=== PATIENT | male | born 1970 | race Caucasian/White ===

== ENCOUNTER 2016-08-18 14:43 | Emergency (ER) | payer MEDICAID ==
[~2016-08-18] VITALS: Wt 78.0 kg
[~2016-08-18 14:43] MED LIST: DENIES MEDS
[2016-08-18] MEDS ORDERED: ONDANSETRON 4 MG INJ IV STA (14:53)
[2016-08-18] MEDS ORDERED: morphine 4 MG/ML VIAL IV STA (14:53)
--- NOTE | 2016-08-18 14:55 | ERD ---
ER Documentation Chief Complaint Date/Time DATE: 08/18/16 TIME: 14:54 Chief Complaint HPI Patient is a 46-year-old male who presents with sudden onset, severe, sharp pain to the bilateral lower quadrants described as something exploding inside him. The patient states he has had this pain intermittently over the last 1 month. He reports that it is worse with coughing or sneezing. He denies any exacerbation after eating or exercising. Reports subjective fever yesterday. Denies vomiting. Reports constipation. Last bowel movement was today. Denies dysuria or hematuria. ROS All systems reviewed and are negative except as per history of present illness. Medications Home Meds Active Scripts Tramadol HCl (Tramadol HCl) 50 Mg Tablet, 50 MG PO Q4 Y for PAIN, #20 TAB Prov:BLANKA PRATER MD 08/18/16 Discontinued Reported Medications [Denies Meds] No Conflict Check 07/05/10 Allergies Allergies: Coded Allergies: No Known Drug Allergy (Verified Allergy, Mild, 08/18/16) PMhx/Soc Past medical history: None Past surgical history: Appendectomy Social history: Smokes cigarettes, denies alcohol or illicit drugs. History of Surgery: Yes (appy) Anesthesia Reaction: No Hx Neurological Disorder: No Hx Respiratory Disorders: No Hx Cardiac Disorders: No Hx Psychiatric Problems: No Hx Miscellaneous Medical Probl: No Hx Alcohol Use: No Hx Substance Use: No Hx Tobacco Use: No FmHx Family History: No coronary disease, No diabetes Physical Exam Vitals Vital Signs Date Time Temp Pulse Resp B/P Pulse Ox O2 Delivery O2 Flow Rate FiO2 08/18/16 18:16 75 14 119/59 97 Room Air 08/18/16 16:01 71 20 131/75 96 Nasal Cannula 2.0 08/18/16 14:55 98.3 79 18 153/71 98 Physical Exam Const: Alert, in severe distress Head: Atraumatic Eyes: Normal Conjunctiva, no pallor, no icterus ENT: Normal External Ears, Nose and Mouth. Mucous membranes moist Neck: Full range of motion..~ No meningismus. Resp: Clear to auscultation bilaterally, no wheezes, no rales Cardio: Regular rate and rhythm, no murmurs Abd: Soft, obese, tender in bilateral lower quadrants and right upper quadrant. Exam is inconsistent. No rebound. Skin: No petechiae or rashes Back: No midline or flank tenderness Ext: No cyanosis, or edema Neur: Awake and alert, cranial nerves II through XII intact bilaterally, moves and feels 4 extremities appropriately. Psych: Normal Mood and Affect Result Diagram: 08/18/16 1435 08/18/16 1435 Results 24 hrs Laboratory Tests Test 08/18/16 14:35 08/18/16 17:46 White Blood Count 14.210^3/ul Red Blood Count 5.0410^6/ul Hemoglobin 15.5g/dl Hematocrit 46.1% Mean Corpuscular Volume 91.5fl Mean Corpuscular Hemoglobin 30.8pg Mean Corpuscular Hemoglobin Concent 33.6g/dl Red Cell Distribution Width 12.7% Platelet Count 07405^3/UL Mean Platelet Volume 9.7fl Neutrophils % 56.6% Lymphocytes % 29.5% Monocytes % 8.2% Eosinophils % 4.7% Basophils % 0.6% Nucleated Red Blood Cells % 0.0/100WBC Neutrophils # 8.010^3/ul Lymphocytes # 4.210^3/ul Monocytes # 1.210^3/ul Eosinophils # 0.710^3/ul Basophils # 0.110^3/ul Nucleated Red Blood Cells # 0.010^3/ul Prothrombin Time 12.0Sec Prothrombin Time Ratio 0.9 INR International Normalized Ratio 0.89 Activated Partial Thromboplast Time 31.6Sec Sodium Level 138mmol/L Potassium Level 3.9mmol/L Chloride Level 102mmol/L Carbon Dioxide Level 25mmol/L Anion Gap 15 Blood Urea Nitrogen 14mg/dl Creatinine 0.84mg/dl Glucose Level 194mg/dl Lactic Acid Level 2.6mmol/L Calcium Level 8.7mg/dl Total Bilirubin 0.1mg/dl Direct Bilirubin 0.00mg/dl Indirect Bilirubin 0.1mg/dl Aspartate Amino Transf (AST/SGOT) 31IU/L Alanine Aminotransferase (ALT/SGPT) 42IU/L Alkaline Phosphatase 86IU/L Troponin I < 0.012ng/ml Total Protein 7.2g/dl Albumin 3.5g/dl Globulin 3.70g/dl Albumin/Globulin Ratio 0.94 Lipase 53U/L Urine Color LT. YELLOW Urine Clarity CLEAR Urine pH 5.0 Urine Specific [place] <=1.005 Urine Ketones NEGATIVE Urine Nitrite NEGATIVE Urine Bilirubin NEGATIVE Urine Urobilinogen 0.2 E.U./dL Urine Leukocyte Esterase NEGATIVE Urine Hemoglobin NEGATIVE Urine Glucose NEGATIVE% Urine Total Protein NEGATIVE Current Medications Medications (Trade) Dose Ordered Sig/Ciro Route PRN Reason Start Time Stop Time Status Last Admin Dose Admin Morphine Sulfate (morphine) 4 mg ONCE STAT IV 08/18/16 14:53 08/18/16 14:55 DC 08/18/16 15:07 Ondansetron HCl (Zofran Inj) 4 mg ONCE STAT IV 08/18/16 14:53 08/18/16 14:55 DC 08/18/16 15:07 IV Flush 10 ml 10 ml STK-MED ONCE .ROUTE 08/18/16 15:43 08/18/16 15:44 DC 08/18/16 15:54 Sodium Chloride (NS) 100 ml @ ud STK-MED ONCE .ROUTE 08/18/16 15:43 08/18/16 15:44 DC 08/18/16 15:54 Iohexol (Omnipaque 300mg/ ml) 150 ml STK-MED ONCE .ROUTE 08/18/16 15:43 08/18/16 15:44 DC 08/18/16 15:54 Sodium Chloride (NS) 2,420 ml BOLUS OVER 2 HOURS STAT IV* 08/18/16 16:04 08/18/16 16:06 DC 08/18/16 16:26 Procedures/MDM EKG read by me: Time 1530, rate 80 Rhythm: Normal sinus [place]: Normal Intervals: Normal ST-T waves: no ischemic changes Ectopy: No Q-waves: Inferior and lateral Q waves Impression: No evidence of ischemia or arrhythmia, possible prior PA MDM: Patient is a 46-year-old male who presents with acute lower abdominal pain. He has variable tenderness on serial exams, but significant right lower quadrant tenderness on initial exam. CT scan shows fatty liver and cholelithiasis, but no evidence of appendicitis, cholecystitis, diverticulitis, ureterolithiasis, or aortic pathology. Patient has elevated white blood cell count and slightly elevated lactic acid, but is afebrile and otherwise has normal vital signs. Patient was given IV fluids and analgesics and on reassessment patient states that his pain is almost completely resolved. He does have residual mild right lower quadrant tenderness on exam. His description of symptoms is not suggestive of mesenteric ischemia, and there is no pain out of proportion to exam. Given the intermittency and duration of symptoms for 1 month, I do not suspect appendicitis. Given that the patient is now well-appearing and has stable vital signs and minimal symptoms, I believe he can be safely discharged home. I did discuss strict return precautions given his mild abdomen abnormalities on laboratory testing, and I also advised the patient to follow-up with his PMD for referral to gastroenterology given chronicity of symptoms. Departure Diagnosis: Primary Impression: Abdominal pain Abdominal location: right lower quadrant Qualified Code: R10.31 - Right lower quadrant abdominal pain Condition: BLANKA Davis MD August 18, 2016 14:55
[2016-08-18 15:14] LABS: ADD SCAN DIFF NO
[2016-08-18 15:17] LABS: BASOPHIL # 0.1 10^3/ul (0.0-0.1); BASOPHILS % 0.6 % (0.0-2.0); EOSINOPHILS # 0.7 10^3/ul (0.0-0.5); EOSINOPHILS % 4.7 % (0.0-7.0); HEMATOCRIT 46.1 % (42.0-52.0); HEMOGLOBIN 15.5 g/dl (14.0-18.0); LYMPHOCYTES # 4.2 10^3/ul (0.8-2.9); LYMPHOCYTES % 29.5 % (15.0-51.0); MEAN CORPUSCULAR HEMOGLOBIN 30.8 pg (29.0-33.0); MEAN CORPUSCULAR HGB CONC 33.6 g/dl (32.0-37.0); MEAN CORPUSCULAR VOLUME 91.5 fl (82.0-101.0); MEAN PLATELET VOLUME 9.7 fl (7.4-10.4); MONOCYTE # 1.2 10^3/ul (0.3-0.9); MONOCYTES % 8.2 % (0.0-11.0); NEUTROPHILS % 56.6 % (39.0-77.0); PLATELET COUNT 303 10^3/UL (140-415); RED BLOOD COUNT 5.04 10^6/ul (4.70-6.10); RED CELL DISTRIBUTION WIDTH 12.7 % (11.5-14.5); WHITE BLOOD COUNT 14.2 10^3/ul (4.8-10.8)
[2016-08-18 15:34] LABS: INR 0.89; PT RATIO 0.9
[2016-08-18 15:35] LABS: PARTIAL THROMBOPLASTIN TIME 31.6 Sec (25.0-35.0)
[2016-08-18 15:36] LABS: ALBUMIN 3.5 g/dl (3.3-4.9)
[2016-08-18 15:37] LABS: POTASSIUM 3.9 mmol/L (3.5-5.1)
[2016-08-18 15:39] LABS: ALBUMIN/GLOBULIN RATIO 0.94; BILIRUBIN,INDIRECT 0.1 mg/dl (0-1.1); BILIRUBIN,TOTAL 0.1 mg/dl (0.2-1.3); CREATININE 0.84 mg/dl (0.61-1.24); TOTAL PROTEIN 7.2 g/dl (6.1-8.1)
[2016-08-18 15:40] LABS: CALCIUM 8.7 mg/dl (8.4-10.2)
[2016-08-18] MEDS ORDERED: SOD CHLORIDE 0.9% 100 ML ONE (15:43)
[2016-08-18] MEDS ORDERED: IOHEXOL 300MG/ML 150 ML BTL ONE (15:43)
[2016-08-18] MEDS ORDERED: SODIUM CHLORIDE 0.9% 1L BAG IV* STA (16:04)
--- NOTE | 2016-08-18 16:27 | RADRPT ---
PROCEDURE: CT abdomen and pelvis with intravenous contrast. CLINICAL INDICATION: Abdominal Pain TECHNIQUE: Following intravenous contrast, spiral CT of the abdomen pelvis was performed and is re constructed at 2.5 mm contiguous axial intervals from the dome of the diaphragm to the inferior pubi c rami. Computer reformatted coronal and sagittal images are included. CT D I 24 millicurie Dose 1374 millicurie per centimeter COMPARISON: CT abdomen pelvis September 08, 2013 FINDINGS: Lung bases are clear of any infiltrate or mass. There is no effusion. The liver is enlarged measuring 20 cm. There is diffuse fatty infiltration. No mass or ductal dila tation is seen. Gallbladder is decompressed. A tiny gallstone is noted. No splenic, adrenal or pancreatic abnormalities present. Kidneys enhance symmetrically. No hydronephrosis, calculus or solid masses present. Cortical cyst i s seen in the midpole of the left kidney. Ureters are of normal course and caliber with no stone. N o bladder mass or stone is present. Prostate and seminal vesicles are normal. No bowel mass or obstruction is seen. There is no phlegmon, ascites or pneumoperitoneum. No aneurysm is detected. There is no adenopathy. The osseous structures are intact. IMPRESSION: No evidence of urolithiasis, obstructive uropathy, diverticulitis or appendicitis. Cholelithiasis. Enlarged fatty liver. .Maximino Lacey MD, Date Time Electronically viewed and signed by .Maximino Lacey MD, on 08/18/2016 16:27 .A/
--- NOTE | 2016-08-18 17:07 | RADRPT ---
PROCEDURE: XR Chest. CLINICAL INDICATION: Chest pain. Leukocytosis TECHNIQUE: Portable AP upright view of the chest was obtained. COMPARISON: None. FINDINGS: The cardiomediastinal silhouette is mildly enlarged. The lungs are clear. There is no evidence for pleural effusion, pneumothorax or pulmonary vascular congestion. The osseous structures are intact with no evidence for acute abnormality. RPTAT:HJJR IMPRESSION: Mild cardiac silhouette enlargement without evidence for acute intrathoracic pathology. Physician Emilie Date Time Electronically viewed and signed by Physician Emilie on 08/18/2016 17:06 JR/
[2016-08-18 18:05] LABS: ADD UMIC NO; URINE BILIRUBIN (Dip) NEGATIVE (NEGATIVE); URINE BLOOD (Dip) NEGATIVE (NEGATIVE); URINE COLOR LT. YELLOW (YELLOW); URINE GLUCOSE (Dip) NEGATIVE (NEGATIVE); URINE KETONES (Dip) NEGATIVE (NEGATIVE); URINE LEUKOCYTE ESTERASE (Dip) NEGATIVE (NEGATIVE); URINE NITRITE (Dip) NEGATIVE (NEGATIVE); URINE TOTAL PROTEIN (Dip) NEGATIVE (NEGATIVE); URINE UROBILINOGEN (Dip) 0.2 E.U./dL (0.1-1.0)
[2016-08-18] MEDS ORDERED: TRAM50TA2 PO (18:14)
[2016-08-18 18:16] VITALS: BP 119/59; PULSE 75; RESP 14
== END 2016-08-18 18:55 | disposition home or self-care (01) ==
LOC: E/R 14:43
DX: R10.31 Right lower quadrant pain (principal); F17.210 Nicotine dependence, cigarettes, uncomplicated
CPT/HCPCS: 36415; 71010; 74177; 80053; 81003; 83605; 83690; 84484; 85025; 85610; 85730; 87040; 87086; 93005; 96374; 96375; J2270; J2405; J7030; Q9967; Z7502; Z7610

== ENCOUNTER 2016-12-18 21:02 | Emergency (ER) | payer MEDICAID ==
[~2016-12-18] VITALS: Ht 182.9 cm; Wt 124.5 kg
[~2016-12-18 21:02] MED LIST changes: -DENIES MEDS; +TRAM50TA2 PO
[2016-12-18 21:23] VITALS: Ht 182.9 cm; Wt 124.5 kg
[2016-12-19] MEDS ORDERED: ONDANSETRON 4 MG INJ IV STA (01:05)
[2016-12-19] MEDS ORDERED: morphine 4 MG/ML VIAL IV STA (01:05)
--- NOTE | 2016-12-19 01:17 | ERD ---
ER Documentation Chief Complaint Date/Time DATE: 12/19/16 TIME: 01:13 Chief Complaint lower abd pain x1 day HPI 46-year-old male presents here in emergency department for complaints of lower abdominal pain that started yesterday, describes the pain as sharp pain, 9/10 scale, not better or worse with anything. Patient denies any fever or chills. Patient denies any flank pain. Patient denies any hematuria or dysuria. Patient feels like his abdomen is bloated. ROS All systems reviewed and are negative except as per history of present illness. Medications Home Meds Active Scripts Tramadol HCl (Tramadol HCl) 50 Mg Tablet, 50 MG PO Q4 Y for PAIN, #20 TAB Prov:BLANKA PRATER MD 08/18/16 Allergies Allergies: Coded Allergies: No Known Drug Allergy (Verified Allergy, Mild, 08/18/16) PMhx/Soc History of Surgery: Yes (appendectomy) Anesthesia Reaction: No Hx Neurological Disorder: No Hx Respiratory Disorders: No Hx Cardiac Disorders: No Hx Psychiatric Problems: No Hx Miscellaneous Medical Probl: No Hx Alcohol Use: No Hx Substance Use: No Hx Tobacco Use: No Smoking Status: Never smoker FmHx Family History: No coronary disease, No diabetes, No other Physical Exam Vitals Vital Signs Date Time Temp Pulse Resp B/P Pulse Ox O2 Delivery O2 Flow Rate FiO2 12/18/16 21:23 98.3 92 20 126/62 98 Physical Exam GENERAL: The patient is well developed and appropriate for usual state of health, in no apparent distress. CHEST: Clear to auscultation bilaterally. There are no rales, wheezes or rhonchi. HEART: Regular rate and rhythm. No murmurs, clicks, rubs or gallops. No S3 or S4. ABDOMEN: Soft, nontender and nondistended. Good bowel sounds. No rebound or guarding. No gross peritonitis. No gross organomegaly or masses. No Huynh sign or McBurney point tenderness. BACK: No midline or flank tenderness. EXTREMITIES: Equal pulses bilaterally. There is no peripheral clubbing, cyanosis or edema. No focal swelling or erythema. Full range of motion. Grossly neurovascularly intact. NEURO: Alert and oriented. Cranial nerves 2-12 intact. Motor strength in all 4 extremities with 5/5 strength. Sensation grossly intact. Normal speech and gait. SKIN: There is no apparent rash or petechia. The skin is warm and dry. HEMATOLOGIC AND LYMPHATIC: There is no evidence of excessive bruising or lymphedema. No gross cervical, axillary, or inguinal lymphadenopathy. Result Diagram: 12/19/16 0123 12/19/16 0123 Results 24 hrs Laboratory Tests Test 12/19/16 01:23 12/19/16 01:28 White Blood Count 12.710^3/ul Red Blood Count 5.1010^6/ul Hemoglobin 15.8g/dl Hematocrit 45.5% Mean Corpuscular Volume 89.2fl Mean Corpuscular Hemoglobin 31.0pg Mean Corpuscular Hemoglobin Concent 34.7g/dl Red Cell Distribution Width 12.3% Platelet Count 92295^3/UL Mean Platelet Volume 10.2fl Neutrophils % 59.0% Lymphocytes % 26.5% Monocytes % 8.7% Eosinophils % 4.6% Basophils % 0.7% Nucleated Red Blood Cells % 0.0/100WBC Neutrophils # (Manual) 7.510^3/ul Lymphocytes # 3.410^3/ul Monocytes # 1.110^3/ul Eosinophils # 0.610^3/ul Basophils # 0.110^3/ul Nucleated Red Blood Cells # 0.010^3/ul Sodium Level 132mmol/L Potassium Level 4.3mmol/L Chloride Level 100mmol/L Carbon Dioxide Level 27mmol/L Anion Gap 9 Blood Urea Nitrogen 12mg/dl Creatinine 0.86mg/dl Glucose Level 358mg/dl Calcium Level 9.5mg/dl Total Bilirubin 0.4mg/dl Direct Bilirubin 0.00mg/dl Indirect Bilirubin 0.4mg/dl Aspartate Amino Transf (AST/SGOT) 36IU/L Alanine Aminotransferase (ALT/SGPT) 62IU/L Alkaline Phosphatase 118IU/L Total Protein 7.6g/dl Albumin 3.9g/dl Globulin 3.70g/dl Albumin/Globulin Ratio 1.05 Lipase 72U/L Urine Color YELLOW Urine Clarity CLEAR Urine pH 5.0 Urine Specific [place] 1.036 Urine Ketones NEGATIVEmg/dL Urine Nitrite NEGATIVEmg/dL Urine Bilirubin NEGATIVEmg/dL Urine Urobilinogen NEGATIVEmg/dL Urine Leukocyte Esterase NEGATIVELeu/ul Urine Hemoglobin NEGATIVEmg/dL Urine Glucose 3+mg/dL Urine Total Protein NEGATIVEmg/dl Current Medications Medications (Trade) Dose Ordered Sig/Ciro Route PRN Reason Start Time Stop Time Status Last Admin Dose Admin Morphine Sulfate (morphine) 4 mg ONCE STAT IV 12/19/16 01:05 12/19/16 01:06 DC 12/19/16 01:32 Ondansetron HCl 4 mg 4 mg ONCE STAT IV 12/19/16 01:05 12/19/16 01:06 DC 12/19/16 01:32 Sodium Chloride (NS) 100 ml @ ud STK-MED ONCE .ROUTE 12/19/16 02:53 12/19/16 02:54 DC 12/19/16 03:07 Iohexol (Omnipaque 300mg/ ml) 150 ml STK-MED ONCE .ROUTE 12/19/16 02:53 12/19/16 02:54 DC 12/19/16 03:07 Patient was given medication for pain here in emergency department, after treatment, patient verbalized feeling much better. Patient's pain is improved.Patient was given Zofran here in the emergency department. After treatment, patient was able to tolerate po fluids here in the emergency department without any vomiting. There is no signs and symptoms of dehydration. PROCEDURE: CT Abdomen and pelvis with contrast CLINICAL INDICATION: Abdominal pain TECHNIQUE: Spiral CT images through the abdomen and pelvis without administration of oral and during intravenous administration of 100 cc of Omnipaque-300 contrast material. Multiplanar reformatted images were obtained. The total exam CTDI equals 23.6 mGy and the total exam DLP equals 1642.29 mGy- cm. One or more of the following dose reduction techniques were used: automated exposure control, adjustment of the mA and/or kV according to patient size, or use of iterative reconstruction technique. COMPARISON: 08/18/2016 FINDINGS: There is bilateral dependent, basilar atelectasis. No pleural or pericardial effusion is seen.. Fatty enlarged liver is again noted. The spleen is normal in size. The adrenal glands and pancreas are normal. The gallbladder is contracted with a tiny gallstone. No biliary ductal dilatation is seen. The kidneys are normal in size and contour. The exophytic left renal cysts is unchanged. There is no evidence of obstructive uropathy. Symmetric renal enhancement is demonstrated. The aorta is normal in caliber. No adenopathy or ascites is seen. There is no evidence for bowel obstruction, free air, or abscess. The appendix is not visualized. The pelvic structures are unremarkable. The osseous structures are intact. Bilateral sacroiliac joints are narrowed and sclerotic. IMPRESSION: No definite acute abnormality of the abdomen or pelvis. Contracted gallbladder with a tiny gallstone. Fatty liver. RPTAT: HCNS Physician Amy Date Time Electronically viewed and signed by Racquel West Physician on 12/19/2016 03: 37 CS/ CC: BLAIRE OLVERA X RAY CONSULTANT Procedures/MDM Medical Decision Making: Patient's abdominal pain nonspecific at this time, can be from biliary colic, no acute distress noted, no symptoms of any appendicitis, diverticulitis, no abscesses, no perforation.There is low suspicion for abdominal emergencies at this time. Patients abdominal exam is normal at this time. Patients radiology exam does not show any abdominal emergencies at this time. There is low suspicion for appendicitis, cholecystitis , abdominal aortic aneurysms or peritonitis at this time. There is low suspicion for sepsis. Patient appears well and is hemodynamically stable. Disposition: Home. Condition: Stable Prescription Tramadol, Zofran Instructions: Patient is advised to take medications as prescribed. Patient is advised to rest, increase fluid intake and do brat diet for next 1-2 days and progress as tolerated. Patient is advised that if symptoms are worse, severe abdominal pain, uncontrolled vomiting, high fever, severe flank pain, worst signs and symptoms, to return to the emergency department immediately. Otherwise, patient can follow up with primary care doctor in 5-7 days. Departure Diagnosis: Primary Impression: Abdominal pain Abdominal location: lower abdomen, unspecified Qualified Code: R10.30 - Lower abdominal pain Condition: Stable Patient Instructions: Abdominal Pain Additional Instructions: Patient is advised to take medications as prescribed. Patient is advised to rest , increase fluid intake and do brat diet for next 1-2 days and progress as tolerated. Patient is advised that if symptoms are worse, severe abdominal pain , uncontrolled vomiting, high fever, severe flank pain, worst signs and symptoms , to return to the emergency department immediately. Otherwise, patient can follow up with primary care doctor in 5-7 days. BLAIRE OLVERA NP Dec 19, 2016 01:17
[2016-12-19 01:36] LABS: BASOPHIL # 0.1 10^3/ul (0.0-0.1); BASOPHILS % 0.7 % (0.0-2.0); EOSINOPHILS # 0.6 10^3/ul (0.0-0.5); EOSINOPHILS % 4.6 % (0.0-7.0); HEMATOCRIT 45.5 % (42.0-52.0); HEMOGLOBIN 15.8 g/dl (14.0-18.0); LYMPHOCYTES # 3.4 10^3/ul (0.8-2.9); LYMPHOCYTES % 26.5 % (15.0-51.0); MEAN CORPUSCULAR HGB CONC 34.7 g/dl (32.0-37.0); MEAN CORPUSCULAR VOLUME 89.2 fl (82.0-101.0); MEAN PLATELET VOLUME 10.2 fl (7.4-10.4); MONOCYTE # 1.1 10^3/ul (0.3-0.9); MONOCYTES % 8.7 % (0.0-11.0); PLATELET COUNT 284 10^3/UL (140-415); RED CELL DISTRIBUTION WIDTH 12.3 % (11.5-14.5); WHITE BLOOD COUNT 12.7 10^3/ul (4.8-10.8)
[2016-12-19 01:57] LABS: ALBUMIN 3.9 g/dl (3.3-4.9); ALBUMIN/GLOBULIN RATIO 1.05; BILIRUBIN,INDIRECT 0.4 mg/dl (0-1.1); BILIRUBIN,TOTAL 0.4 mg/dl (0.2-1.3); CALCIUM 9.5 mg/dl (8.4-10.2); CREATININE 0.86 mg/dl (0.61-1.24); POTASSIUM 4.3 mmol/L (3.5-5.1); TOTAL PROTEIN 7.6 g/dl (6.1-8.1)
[2016-12-19 02:00] LABS: ADD UMIC NO; UR ASCORBIC ACID NEGATIVE (NEGATIVE); UR BILIRUBIN (Dip) NEGATIVE (NEGATIVE); UR BLOOD (Dip) NEGATIVE (NEGATIVE); UR CLARITY CLEAR (CLEAR); UR COLOR YELLOW (YELLOW); UR GLUCOSE (Dip) 3+ mg/dL (NEGATIVE); UR KETONES (Dip) NEGATIVE (NEGATIVE); UR LEUKOCYTE ESTERASE (Dip) NEGATIVE Leu/ul (NEGATIVE); UR NITRITE (Dip) NEGATIVE (NEGATIVE); UR SPECIFIC GRAVITY (Dip) 1.036 (1.003-1.030); UR TOTAL PROTEIN (Dip) NEGATIVE (NEGATIVE); UR UROBILINOGEN (Dip) NEGATIVE (NEGATIVE)
[2016-12-19] MEDS ORDERED: SOD CHLORIDE 0.9% 100 ML ONE (02:53)
[2016-12-19] MEDS ORDERED: IOHEXOL 300MG/ML 150 ML BTL ONE (02:53)
--- NOTE | 2016-12-19 03:37 | RADRPT ---
PROCEDURE: CT Abdomen and pelvis with contrast CLINICAL INDICATION: Abdominal pain TECHNIQUE: Spiral CT images through the abdomen and pelvis without administration of oral and duri ng intravenous administration of 100 cc of Omnipaque-300 contrast material. Multiplanar reformatted images were obtained. The total exam CTDI equals 23.6 mGy and the total exam DLP equals 1642.29 mGy -cm. One or more of the following dose reduction techniques were used: automated exposure control, a djustment of the mA and/or kV according to patient size, or use of iterative reconstruction techniqu e. COMPARISON: 08/18/2016 FINDINGS: There is bilateral dependent, basilar atelectasis. No pleural or pericardial effusion is seen.. Fatty enlarged liver is again noted. The spleen is normal in size. The adrenal glands and pancreas a re normal. The gallbladder is contracted with a tiny gallstone. No biliary ductal dilatation is seen . The kidneys are normal in size and contour. The exophytic left renal cysts is unchanged. There is no evidence of obstructive uropathy. Symmetric renal enhancement is demonstrated. The aorta is no rmal in caliber. No adenopathy or ascites is seen. There is no evidence for bowel obstruction, free air, or abscess. The appendix is not visualized. The pelvic structures are unremarkable. The osseous structures are intact. Bilateral sacroiliac joints are narrowed and sclerotic. IMPRESSION: No definite acute abnormality of the abdomen or pelvis. Contracted gallbladder with a tiny gallstone. Fatty liver. RPTAT: HCNS Physician Amy Date Time Electronically viewed and signed by Physician Amy on 12/19/2016 03:37 CS/
[2016-12-19] MEDS ORDERED: TRAM50TA2 PO (03:54)
[2016-12-19] MEDS ORDERED: ONDA4TAB14 PO (03:54)
[2016-12-19 06:05] VITALS: BP 132/75; PULSE 77; RESP 20
== END 2016-12-19 06:07 | disposition home or self-care (01) ==
LOC: FTE 21:02
DX: R10.30 Lower abdominal pain, unspecified (principal)
CPT/HCPCS: 36415; 74177; 80053; 81003; 83690; 85025; 96374; 96375; J2270; J2405; Q9967; Z7502; Z7610

== ENCOUNTER 2017-01-23 16:46 | Emergency (ER) | payer MEDICAID ==
[~2017-01-23] VITALS: Ht 175.3 cm; Wt 98.0 kg
[~2017-01-23 16:46] MED LIST changes: +ONDA4TAB14 PO
[2017-01-23 17:06] VITALS: Ht 175.3 cm; Wt 98.0 kg
[2017-01-23] MEDS ORDERED: ONDANSETRON 4 MG INJ IV STA (17:58)
[2017-01-23] MEDS ORDERED: SOD CHLORIDE 0.9% 1,000 ML IV STA (17:58)
[2017-01-23 18:46] LABS: BASOPHIL # 0.1 10^3/ul (0.0-0.1); BASOPHILS % 0.6 % (0.0-2.0); EOSINOPHILS # 0.4 10^3/ul (0.0-0.5); EOSINOPHILS % 3.5 % (0.0-7.0); HEMATOCRIT 42.7 % (42.0-52.0); HEMOGLOBIN 15.3 g/dl (14.0-18.0); LYMPHOCYTES # 3.6 10^3/ul (0.8-2.9); LYMPHOCYTES % 32.3 % (15.0-51.0); MEAN CORPUSCULAR HEMOGLOBIN 31.4 pg (29.0-33.0); MEAN CORPUSCULAR HGB CONC 35.8 g/dl (32.0-37.0); MEAN CORPUSCULAR VOLUME 87.5 fl (82.0-101.0); MEAN PLATELET VOLUME 10.9 fl (7.4-10.4); MONOCYTE # 0.9 10^3/ul (0.3-0.9); MONOCYTES % 8.3 % (0.0-11.0); NEUTROPHIL # 6.1 10^3/ul (1.6-7.5); NEUTROPHILS % 54.9 % (39.0-77.0); PLATELET COUNT 224 10^3/UL (140-415); RED BLOOD COUNT 4.88 10^6/ul (4.70-6.10); WHITE BLOOD COUNT 11.1 10^3/ul (4.8-10.8)
[2017-01-23 19:03] LABS: CALCIUM 9.2 mg/dl (8.4-10.2); CREATININE 0.72 mg/dl (0.61-1.24)
[2017-01-23 19:20] LABS: ADD UMIC NO; UR ASCORBIC ACID NEGATIVE (NEGATIVE); UR BILIRUBIN (Dip) NEGATIVE (NEGATIVE); UR BLOOD (Dip) NEGATIVE (NEGATIVE); UR CLARITY CLEAR (CLEAR); UR COLOR COLORLESS (YELLOW); UR GLUCOSE (Dip) 3+ mg/dL (NEGATIVE); UR KETONES (Dip) NEGATIVE (NEGATIVE); UR LEUKOCYTE ESTERASE (Dip) NEGATIVE Leu/ul (NEGATIVE); UR NITRITE (Dip) NEGATIVE (NEGATIVE); UR SPECIFIC GRAVITY (Dip) 1.028 (1.003-1.030); UR TOTAL PROTEIN (Dip) NEGATIVE (NEGATIVE); UR UROBILINOGEN (Dip) NEGATIVE (NEGATIVE)
[2017-01-23] MEDS ORDERED: INSULIN LISPRO 100 UNIT/ML VIAL SC STA (19:36)
[2017-01-23] MEDS ORDERED: SOD CHLORIDE 0.9% 1,000 ML IV ONE (20:00)
[2017-01-23] MEDS ORDERED: METF500T4 PO (21:42)
--- NOTE | 2017-01-23 21:59 | ERD ---
ER Documentation Chief Complaint Date/Time DATE: 01/23/17 TIME: 21:55 Chief Complaint SENT BY PMD FOR HYPERGLYCEMIA, UNABLE TO MEASURE, DIAPHORECTIC HPI This 46-year-old male who knows that he has diabetes sent by his primary care doctor to this emergency room because the doctor said his sugar was too high to read with his meter that goes up to 500. In triage the stated the patient was diaphoretic. He is not diaphoretic currently and states that he has been peeing more than usual lately. He knows he is diabetic but is just not been taking any medication for it for years. He does have good primary care follow- up. He denies any chest pain, does have mild nausea, denies vomiting. ROS All systems reviewed and are negative except as per history of present illness. Medications Home Meds Active Scripts Metformin* (Glucophage*) 500 Mg Tab, 500 MG PO BID, #20 TAB Prov:CADYMELISSA 01/23/17 Discontinued Scripts Ondansetron (Ondansetron Odt) 4 Mg Tab.rapdis, 4 MG PO Q8 Y for NAUSEA AND/OR VOMITING, #30 TAB Prov:BLAIRE OLVERA NP 12/19/16 Tramadol HCl (Tramadol HCl) 50 Mg Tablet, 50 MG PO Q6, #20 TAB Prov:BLAIRE OLVERA NP 12/19/16 Tramadol HCl (Tramadol HCl) 50 Mg Tablet, 50 MG PO Q4 Y for PAIN, #20 TAB Prov:BLANKA PRATER MD 08/18/16 Allergies Allergies: Coded Allergies: No Known Drug Allergy (Verified Allergy, Mild, 01/23/17) PMhx/Soc History of Surgery: Yes (appendectomy) Anesthesia Reaction: No Hx Neurological Disorder: No Hx Respiratory Disorders: No Hx Cardiac Disorders: No Hx Psychiatric Problems: No Hx Miscellaneous Medical Probl: Yes (DM) Hx Alcohol Use: No Hx Substance Use: No Hx Tobacco Use: Yes Smoking Status: Current every day smoker Physical Exam Vitals Vital Signs Date Time Temp Pulse Resp B/P Pulse Ox O2 Delivery O2 Flow Rate FiO2 01/23/17 17:06 98.0 77 20 138/65 96 Physical Exam Const: [] Mild distress. Head: Atraumatic Eyes: Normal Conjunctiva ENT: Normal External Ears, Nose and Mouth. Neck: Full range of motion..~ No meningismus. Resp: Clear to auscultation bilaterally Cardio: Regular rate and rhythm, no murmurs Abd: Soft, non tender, non distended. Normal bowel sounds Skin: No petechiae or rashes Back: No midline or flank tenderness Ext: No cyanosis, or edema Neur: Awake and alert and oriented 3, no focal deficits Psych: Normal Mood and Affect Result Diagram: 01/23/17182601/23/171826 Results 24 hrs Laboratory Tests Test 01/23/17 17:23 01/23/17 18:27 01/23/17 18:40 01/23/17 20:33 Bedside Glucose > 595mg/dL 299mg/dL White Blood Count 11.110^3/ul Red Blood Count 4.8810^6/ul Hemoglobin 15.3g/dl Hematocrit 42.7% Mean Corpuscular Volume 87.5fl Mean Corpuscular Hemoglobin 31.4pg Mean Corpuscular Hemoglobin Concent 35.8g/dl Red Cell Distribution Width 12.0% Platelet Count 71276^3/UL Mean Platelet Volume 10.9fl Neutrophils % 54.9% Lymphocytes % 32.3% Monocytes % 8.3% Eosinophils % 3.5% Basophils % 0.6% Nucleated Red Blood Cells % 0.0/100WBC Neutrophils # 6.110^3/ul Lymphocytes # 3.610^3/ul Monocytes # 0.910^3/ul Eosinophils # 0.410^3/ul Basophils # 0.110^3/ul Nucleated Red Blood Cells # 0.010^3/ul Sodium Level 129mmol/L Potassium Level 4.0mmol/L Chloride Level 95mmol/L Carbon Dioxide Level 26mmol/L Anion Gap 12 Blood Urea Nitrogen 12mg/dl Creatinine 0.72mg/dl Glucose Level 572mg/dl Calcium Level 9.2mg/dl Urine Color COLORLESS Urine Clarity CLEAR Urine pH 6.0 Urine Specific [place] 1.028 Urine Ketones NEGATIVEmg/dL Urine Nitrite NEGATIVEmg/dL Urine Bilirubin NEGATIVEmg/dL Urine Urobilinogen NEGATIVEmg/dL Urine Leukocyte Esterase NEGATIVELeu/ul Urine Hemoglobin NEGATIVEmg/dL Urine Glucose 3+mg/dL Urine Total Protein NEGATIVEmg/dl Current Medications Medications (Trade) Dose Ordered Sig/Ciro Route PRN Reason Start Time Stop Time Status Last Admin Dose Admin Sodium Chloride (NS) 1,000 ml @ 1,000 mls/hr Q1H STAT IV 01/23/17 17:58 01/23/17 18:57 DC 01/23/17 18:33 Ondansetron HCl 4 mg 4 mg ONCE STAT IV 01/23/17 17:58 01/23/17 18:00 DC 01/23/17 18:33 Sodium Chloride (NS) 1,000 ml @ 1,000 mls/hr Q1H ONCE IV 01/23/17 20:00 01/23/17 20:59 DC 01/23/17 19:57 Insulin Human Lispro (Humalog) 8 unit ONCE STAT SC 01/23/17 19:36 01/23/17 19:38 DC 01/23/17 19:57 Procedures/MDM Uncontrolled diabetes secondary to noncompliance. Patient was given 2 L of normal saline as well as a small dose of 8 mg of subcu lispro. Sugar was easily decreased. Patient was feeling well in the emergency room. Going to discharge him with metformin 500 mg twice daily as well as instructions to follow-up with primary care doctor in the next 2 days for management of his diabetes now that he says that he is willing to have it treated. Discussed the dangers of diabetes with him. Mild nonspecific leukocytosis with no signs of infection. Pseudohyponatremia. Able to take good p.o. Departure Diagnosis: Primary Impression: Uncontrolled diabetes mellitus Additional Impression: Hyperglycemia due to type 2 diabetes mellitus Condition: Stable Patient Instructions: Diabetes: Caring for Your Body, Diabetes: Activity Tips Additional Instructions: Llame al doctor MAANA y homer benton STARLA PARA DENTRO DE 1-2 HACKETT.Dgale a la secretaria que nosotros le instruimos hacer esta starla.Avise o llame si sanchez condicin se empeora antes de la starla. Regresa aqui si peor o no mejor. MELISSA LAZAR DO Jan 23, 2017 21:59
[2017-01-23 22:19] VITALS: BP 133/65; PULSE 80; RESP 20; TEMP 98
== END 2017-01-23 22:21 | disposition home or self-care (01) ==
LOC: E/R 16:46
DX: E11.65 Type 2 diabetes mellitus with hyperglycemia (principal); F17.210 Nicotine dependence, cigarettes, uncomplicated; Z79.84 Long term (current) use of oral hypoglycemic drugs
CPT/HCPCS: 80048; 81003; 82962; 85025; J1815; J2405; J7030; 36415; 96372; 96374